=== PATIENT | male | born 1980 | race Caucasian/White ===

== ENCOUNTER 2019-01-30 00:28 | Emergency (ER) | payer BC ==
[~2019-01-30] VITALS: Ht 193 cm; Wt 121.6 kg
--- NOTE | 2019-01-30 00:30 | NUR ---
PT BIBSELF C/O SOB,CHILLS,FEVER X 3 DAYS. PT STATES HIS TEMP AT HOME WAS 103 F AT AROUND 2200. PT AXO4. RESPIRATIONS EVEN AND UNLABORED. PT WARM TO THE TOUCH. PT PUT ON THE [employer] AND PULSE OX.
[2019-01-30] MEDS ORDERED: KETOROLAC TROMETHAMINE INJ 30 MG/ML VIAL ONE (00:48)
[2019-01-30] MEDS ORDERED: ACETAMINOPHEN ES 500 MG TABLET ONE ×2 (00:49→01:31)
[2019-01-30] MEDS ORDERED: ACETAMINOPHEN ES 500 MG TABLET PO ONE (01:00)
[2019-01-30] MEDS ORDERED: IV NS 0.9% 1,000 ML BAG IV ONE (01:00)
[2019-01-30] MEDS ORDERED: KETOROLAC TROMETHAMINE INJ 30 MG/ML VIAL IV ONE (01:00)
[2019-01-30 01:14] LABS: BASOPHILS % (AUTO) 0.3 % (0.0-2.0); EOSINOPHILS % (AUTO) 1.6 % (0.0-6.0); HEMATOCRIT 43 % (39-51); HEMOGLOBIN 15.3 g/dL (13.5-17.5); LYMPHOCYTES % (AUTO) 14.3 % (20.0-44.0); MEAN CORPUSCULAR HGB CONC 35 g/dl (31.0-36.0); MEAN CORPUSCULAR VOLUME 88 fL (80-96); MONOCYTES # (AUTO) 0.6 /CMM (0.1-1.30); NEUTROPHILS # (AUTO) 5.4 /CMM (1.8-8.9); NEUTROPHILS % (AUTO) 75.8 % (43.0-81.0); PLATELET COUNT (AUTO) 150 /CMM (150-450); RED BLOOD CELL COUNT(AUTO) 4.91 MIL/uL (4.5-6.0); WHITE BLOOD COUNT (AUTO) 7.2 K/uL (4.3-11.0)
[2019-01-30 01:19] LABS: CALCIUM, SERUM 8.5 mg/dL (8.5-10.1); CARBON DIOXIDE 30 mmol/L (21-32); CHLORIDE 101 mmol/L (98-107); CREATININE 1.2 mg/dL (0.6-1.3); GLUCOSE 123 mg/dL (74-106); POTASSIUM 3.6 mmol/L (3.5-5.1); SODIUM SERUM 139 mmol/L (136-145); UREA NITROGEN, BLOOD 7 mg/dL (7-18)
--- NOTE | 2019-01-30 02:30 | NUR ---
Patient discharged to home in stable condition. Written and verbal after care instructions given. Patient verbalizes understanding of instruction. IV removed. Catheter intact and site benign. Pressure and 4x4 applied to site. No bleeding noted.
[2019-01-30 02:31] VITALS: BP 118/77
== END 2019-01-30 02:31 | disposition home or self-care (01) ==
LOC: ER 00:36
DX: J18.1 Lobar pneumonia, unspecified organism (principal); M79.10 Myalgia, unspecified site; J06.9 Acute upper respiratory infection, unspecified; I10 Essential (primary) hypertension
CPT/HCPCS: 36415; 71045; 80048; 84484; 85025; 93005; 96361; 96374; 99284; J1885; J7030